=== PATIENT | male | born 1975 | race Caucasian/White ===

== ENCOUNTER 2017-10-27 07:54 | Day surgery (SDC) | payer OTHER, SELFPAY ==
[2017-10-27 08:12] VITALS: BP 143/83; PULSE 101; RESP 16; TEMP 37; O2SAT 99; BMI 35.4
--- NOTE | 2017-10-27 09:20 | TOBX_PTH ---
PATIENT: ANGELITO MESSER LOC: [facility] – [place] U#:[id number] AGE/SX: 42/M ROOM: RE10/27/[address]: Oswaldo Gutiérrez MD : 1975 BED: DIS: 10/27/2017 SPEC #: [id number] RECD: 10/27/17 10:39 STATUS: RYNE RERahul #: [id number] JULIA: 10/27/17 09:[address]: Oswaldo Gutiérrez DEPT: SURGICAL PATHOLOGY RECD BY: Harpal Etienne ENTERED: 10/27/17 10:40 SP TYPE: TONGUE BX OTHR DR: Dr. Jackson Rosen MD Tissues: Tongue, NOS Procedures: Surgery Specimen Level IV HEADER OPERATION: Excision, mass, tongue, biopsy PRE-OP DIAGNOSIS: Lesion of tongue TISSUE SUBMITTED: Tongue lesion MICROSCOPIC DIAGNOSIS Tongue lesion, biopsy: Squamous papilloma. ALBERTO:sean 10/28/17 MICROSCOPIC DESCRIPTION Slides are reviewed. GROSS DESCRIPTION Received in fixative is one container labeled with the patient's name and designated lesion of tongue. The specimen consists of a piece of white mucosal tissue measuring 0.7 x 0.6 x 0.4 cm. A white, rough lesion is noted on the surface measuring 0.5 x 0.3 cm. The specimen is inked and submitted entirely in one cassette. It will be bisected at the time of embedding. / SJ:rg 10/27/17 TC:1 CPT: 60905
--- NOTE | 2017-10-27 09:39 | PCM.DC ---
You will use the following diet at home:: No restrictions - as tolerated Discharge Activity: Return to Normal Activity - may return to work Tuesday. Allergies/Adverse Reactions: Allergies No Known Allergies Allergy (Verified 10/25/17 08:20) Medications to take at Discharge Diphenhydramine HCl [Z-Sleep] 25 mg PO PRN PRN 10/25/17 Lisinopril 20 mg PO QHS 10/25/17 Tadalafil [Cialis] 5 mg PO PRN PRN 10/25/17 Primary Care Physician: Jackson Rosen MD [Primary Care Provider] - Please Follow Up With: Oswaldo Gutiérrez MD - follow up 1-2 weeks, call for time
[2017-10-27 09:44] VITALS: BP 104/62; BP 143/83; PULSE 95; RESP 16; TEMP 36.7; O2SAT 92
[2017-10-27 10:00] VITALS: BP 105/70; BP 143/83; PULSE 87; RESP 16; O2SAT 93
[2017-10-27 10:15] VITALS: BP 143/83; BP 95/63; PULSE 82; RESP 16; TEMP 36.5; O2SAT 95
[2017-10-27 10:34] VITALS: BP 143/83
--- NOTE | 2017-10-27 10:34 | OP.PCM_ITS ---
Operative Report Date of Procedure: 10/27/17 Preoperative diagnosis: Right lateral tongue mucosal mass Postoperative diagnosis: Same, pathology pending Procedure: Excisional biopsy of right lateral tongue mass Anesthesia: General per Nehemias Champion CRNA Details of procedure: The patient was transported to the operating room and placed on the OR table in the supine position. After the administration of adequate general anesthesia using an LMA the patient was appropriately positioned eyes treated and taped closed. The anterior tongue was mobilized upward from the oral cavity exposing the right lateral aspect. A 4 mm mucosal mass was noted consistent with a probable fibroma. This was possibly due to bite trauma. However clinically one could not tell without appropriate biopsy and thus the reason for performing this today. 1% Xylocaine with epinephrine 1- 100,000 was used to infiltrate the area and bring about vasoconstriction. A 1 cm elliptical incision was made removing the full-thickness mucosa containing the small mass. Oozing was minor. The area was blotted dry and the wound irrigated and blotted dry again. This was closed with 2 sutures in mattress fashion. A 4-0 Vicryl was used to draw this together. The procedure was then terminated. The patient tolerated the procedure well, did not sustain any intraoperative anesthetic or surgical complication, was taken to the PACU where he was noted to be in satisfactory condition. Oswaldo Gutiérrez MD
== END 2017-10-27 10:39 | disposition home or self-care (01) ==
LOC: SDC 07:56 → AC 07:56
PROVIDERS: Family Provider Family Medicine; PCP Family Medicine; Visit Provider Otolaryngology Otolaryngology/Facial Plastic Surgery
PROC: (CPT 41112; principal; 2017-10-27 09:05)
DX: D10.1 Benign neoplasm of tongue (principal); I10 Essential (primary) hypertension; F17.200 Nicotine dependence, unspecified, uncomplicated
CPT/HCPCS: 41112; 88305; 88342; J3010; J7120; J2405